=== PATIENT | female | born 1990 | race Caucasian/White ===

== ENCOUNTER 2023-08-11 19:31 | Observation (INO) | payer BC, OTHER ==
[~2023-08-11] VITALS: Ht 162.6 cm; Wt 119.3 kg
[~2023-08-11 19:31] MED LIST: CETIRIZINE HCL10 MG PO; HYDROXYZINE HCL50 MG PO; PREDNISONE10 MG PO; PROAIR HFA INH8.5 GM INH
[2023-08-11] MEDS ORDERED: ACETAMINOPHEN 325 MG TAB PO STA (20:03)
[2023-08-11] MEDS ORDERED: SODIUM CHLORIDE 0.9% 1000ML 1,000 ML IV STA (20:03)
[2023-08-11 20:07] LABS: BASOPHILS # (AUTO) 0.1 (0.0-0.1); BASOPHILS % 0.7 % (0.0-1.0); EOSINOPHILS # (AUTO) 0.2 (0.0-0.4); HEMATOCRIT 40.2 % (34.2-44.1); HEMOGLOBIN 13.8 g/dL (12.0-16.0); LYMPHOCYTES # (AUTO) 2.8 (1.0-3.2); LYMPHOCYTES % 23.3 % (18.0-39.1); MEAN CORPUSCULAR HEMOGLOBIN 30.5 pg (28-32); MEAN CORPUSCULAR HGB CONC 34.3 g/dL (31-35); MEAN CORPUSCULAR VOLUME 88.7 fL (81-99); MONOCYTES # (AUTO) 0.9 (0.2-0.8); MONOCYTES % 7.7 % (4.4-11.3); PLATELET COUNT 380 x10e3/uL (140-360); RED BLOOD COUNT 4.53 x10e6/uL (3.6-5.1); RED CELL DISTRIBUTION WIDTH 12.1 % (11.7-14.4); WHITE BLOOD COUNT 12.12 x10e3/uL (4.8-10.8)
[2023-08-11 20:11] LABS: CLARITY,URINE CLEAR (CLEAR); COLOR,URINE YELLOW (YELLOW); KETONES,URINE NEGATIVE (NEGATIVE); LEUKOCYTE ESTERASE ,URINE NEGATIVE (NEGATIVE); NITRITE,URINE NEGATIVE (NEGATIVE); PROTEIN,URINE DIPSTICK NEGATIVE (NEGATIVE); URINE UROBILINOGEN 0.2 mg/dL (0.2 - 1)
[2023-08-11] MEDS ORDERED: METHYLPREDNISOLONE SOD SUCC 125 MG/2ML VIAL IV STA (20:11)
[2023-08-11] MEDS ORDERED: ALBUTEROL/IPRATROPIUM 3 ML NEB NEB STA (20:11)
[2023-08-11 20:24] LABS: BACTERIA,URINE FEW /HPF; EPITHELIAL CELLS,URINE MODERATE /LPF
[2023-08-11 20:28] LABS: ALANINE AMINOTRANSFERASE 21 IU/L (0-55); ALBUMIN/GLOBULIN RATIO 1.1 (0.8-2.0); ALKALINE PHOSPHATASE 80 IU/L (40-150); ANION GAP 13.2 mmol/L (8-16); BLOOD UREA NITROGEN 12 mg/dL (7-26); BUN/CREATININE RATIO 15 (6-25); CALCIUM 9.6 mg/dL (8.4-10.2); CARBON DIOXIDE 27 mmol/L (22-29); CHLORIDE 100 mmol/L (98-107); CREATINE KINASE 52 IU/L (29-168); CREATININE, SERUM 0.82 mg/dL (0.57-1.11); POTASSIUM 3.2 mmol/L (3.5-5.1); SODIUM 137 mmol/L (136-145)
[2023-08-11] MEDS ORDERED: IOPAMIDOL 370 MG/ML 100 ML INFUS..BTL INJ ONE (20:28)
[2023-08-11] MEDS ORDERED: LABETALOL HCL 5 MG/ML 20ML VIAL IV STA (21:12)
[2023-08-11] MEDS ORDERED: LABETALOL HCL 20 ML ONE (21:18)
[2023-08-11 21:30] VITALS: PULSE 115; RESP 16; O2SAT 99
[2023-08-11] MEDS ORDERED: ONDANSETRON HCL INJ 2MG/ML 2ML 2 MG/ML VIAL IV PRN (23:30)
[2023-08-11] MEDS ORDERED: Morphine 4mg INJECTION 4 MG/ML INJ IV PRN (23:30)
[2023-08-12] VITALS (20 sets, daily range): BP systolic 120–169; BP diastolic 88–112; PULSE 78–120; RESP 13–25; TEMP 98.3–98.6; O2SAT 94–98
[2023-08-12] MEDS: SODIUM CHLORIDE 0.9% 1000ML 1,000 ML IV SCH ×2 (01:16→08:24)
[2023-08-12 02:59] LABS: CREATINE KINASE 47 IU/L (29-168)
[2023-08-12] MEDS ORDERED: ALBUTEROL0.63 MG/3 NEB (04:58)
[2023-08-12] MEDS ORDERED: SINGULAIR10 MG PO (04:58)
[2023-08-12] MEDS ORDERED: PREDNISONE10 MG PO (04:58)
[2023-08-12 05:54] LABS: BASOPHILS % 0.2 % (0.0-1.0); HEMATOCRIT 34.7 % (34.2-44.1); HEMOGLOBIN 13.3 g/dL (12.0-16.0); LYMPHOCYTES # (AUTO) 0.6 (1.0-3.2); MEAN CORPUSCULAR HEMOGLOBIN 35.1 pg (28-32); MEAN CORPUSCULAR HGB CONC 38.3 g/dL (31-35); MEAN CORPUSCULAR VOLUME 91.6 fL (81-99); MONOCYTES # (AUTO) 0.1 (0.2-0.8); NEUTROPHILS # (AUTO) 8.1 (2.1-6.9); NEUTROPHILS % 91.3 % (38.7-80.0); PLATELET COUNT 372 x10e3/uL (140-360); RED BLOOD COUNT 3.79 x10e6/uL (3.6-5.1); WHITE BLOOD COUNT 8.83 x10e3/uL (4.8-10.8)
[2023-08-12] MEDS ORDERED: ACETAMINOPHEN 325 MG TAB PO PRN (06:15)
[2023-08-12] MEDS ORDERED: POLYETHYLENE GLYCOL 3350 17 GM PACK PO PRN (06:15)
[2023-08-12] MEDS ORDERED: METOPROLOL TARTRATE INJ 1 MG/ML VIAL IV PRN (06:15)
[2023-08-12 06:45] LABS: ALBUMIN 3.7 g/dL (3.5-5.0); ANION GAP 11.9 mmol/L (8-16); CREATININE, SERUM 0.7 mg/dL (0.57-1.11); POTASSIUM 3.9 mmol/L (3.5-5.1)
[2023-08-12 07:17] LABS: CHOL/HDL RATIO 3.3 (3.0-3.6); MAGNESIUM 1.8 MG/DL (1.3-2.1); PHOSPHORUS 2.9 MG/DL (2.3-4.7)
[2023-08-12 07:39] LABS: FREE T4 (FREE THYROXINE) 1.2 ng/dL (0.8-1.8); THYROID STIMULATING HORMONE 0.391 uIU/mL (0.350-4.940)
[2023-08-12] MEDS: FAMOTIDINE 20 MG TAB PO SCH ×2 (08:24→16:37)
[2023-08-12] MEDS: DOCUSATE SODIUM 100 MG CAP PO SCH ×2 (08:26→16:37)
[2023-08-12] MEDS: METHYLPREDNISOLONE SOD SUCC 40 MG/ML VIAL 1ML IV SCH (11:01)
[2023-08-12] MEDS: MONTELUKAST SODIUM 10 MG TAB PO SCH (11:01)
[2023-08-12 13:10] LABS: CREATINE KINASE 45 IU/L (29-168)
[2023-08-12] MEDS: BUDESONIDE/FORMOTEROL 160/4.5MCG INHALER INH SCH (20:00)
[2023-08-12] MEDS: GUAIFENESIN/DEXTROMETHORPHAN LIQD 5 ML UDC PO PRN (22:46)
[2023-08-13] VITALS (14 sets, daily range): BP systolic 127–138; BP diastolic 70–103; PULSE 63–116; RESP 11–21; TEMP 97.9–98.1; O2SAT 95–100
[2023-08-13] MEDS: GUAIFENESIN/DEXTROMETHORPHAN LIQD 5 ML UDC PO PRN ×2 (02:16→07:39)
[2023-08-13 06:49] LABS: CREATINE KINASE 29 IU/L (29-168)
[2023-08-13] MEDS: BUDESONIDE/FORMOTEROL 160/4.5MCG INHALER INH SCH (07:25)
[2023-08-13] MEDS: FAMOTIDINE 20 MG TAB PO SCH ×2 (07:39→16:30)
[2023-08-13] MEDS: METHYLPREDNISOLONE SOD SUCC 40 MG/ML VIAL 1ML IV SCH (08:05)
[2023-08-13] MEDS: MONTELUKAST SODIUM 10 MG TAB PO SCH (08:05)
[2023-08-13] MEDS: DOCUSATE SODIUM 100 MG CAP PO SCH (08:06)
[2023-08-13] MEDS: LEVALBUTEROL HCL SOLN NEBU 0.63 MG/3 ML NEB INH PRN ×2 (08:16→14:57)
[2023-08-13] MEDS: SALINE 0.65% NAS SOLN 1 SPRAY BTL SCH ×2 (08:46→15:00)
[2023-08-13] MEDS ORDERED: FLUTICASONE PROPIONATE NASAL SPRAY NS SCH (09:00)
[2023-08-13] MEDS ORDERED: OXYMETAZOLINE HCL 0.05% NAS 1 SPRAY BTL SCH (09:00)
[2023-08-13] MEDS ORDERED: Levalbuterol Hcl Soln Nebu INH (14:42)
[2023-08-13] MEDS ORDERED: SYMBICORT 16010.2 GM INH (14:42)
[2023-08-13] MEDS ORDERED: MEDROL DOSE PACK PO (15:41)
[2023-08-13] MEDS ORDERED: XOPENEX INH (15:43)
[2023-08-14] MEDS ORDERED: PANTOPRAZOLE SOD 40 MG TABEC PO SCH (07:30)
== END 2023-08-13 16:41 | disposition home or self-care (01) ==
LOC: ER 19:36 → ERHOLD 23:28 → INTOOBSV 23:28 → ICU 08-12 01:15 → MED/SURG 08-13 11:54
PROVIDERS: ADMIT Internal Medicine; ATTEND Internal Medicine
DX: J45.901 Unspecified asthma with (acute) exacerbation (principal); R00.0 Tachycardia, unspecified; K21.9 Gastro-esophageal reflux disease without esophagitis; I10 Essential (primary) hypertension; E66.9 Obesity, unspecified; J32.9 Chronic sinusitis, unspecified; I34.0 Nonrheumatic mitral (valve) insufficiency; Z88.1 Allergy status to other antibiotic agents; Z11.52 Encounter for screening for COVID-19; Z79.899 Other long term (current) drug therapy; Z68.42 Body mass index [BMI] 45.0-49.9, adult; Z82.49 Family history of ischemic heart disease and other diseases of the circulatory system
CPT/HCPCS: 36415 ×2; 71045; 71260; 80053 ×2; 80061; 81001; 81025; 82550 ×3; 83036; 83605; 83690; 83735; 83880; 84100; 84439; 84443; 84484 ×3; 85025 ×2; 85379; 87040; 93005 ×2; 93306; 94640 ×3; 94664; 94799 ×3; 99252; 99284; C9113 ×2; G0378 ×3; J2543; J2920 ×2; J2930; J3490; J7030 ×2; Q9967; U0002